=== PATIENT | male | born 1935 | race Caucasian/White ===

== ENCOUNTER 2017-11-30 15:15 | Observation (INO) ==
[2017-11-30] MEDS ORDERED: Esmolol 100 MG/10 ML VIAL IVP ONE (16:00)
[2017-11-30] MEDS ORDERED: Aspirin 81 MG TAB.CHEW PO STA (16:05)
--- NOTE | 2017-11-30 16:08 | Emergency Department Note ---
Disposition Clinical Impression: Atrial fibrillation with rapid ventricular response, Tremor Disposition: Admitted As Inpatient Referrals: Randy Wilks DO [Primary Care Provider] - Forms: ED Satisfaction Letter General Adult HPI - General Chief complaint: ED Arrhythmia/Palpitations Stated complaint: sent by jolynn doc, high HR Time Seen by Provider: 11/30/17 15:55 - History of Present Illness HPI Narrative: Patient presents from his doctor's office where he was noted to have a heart rate of around 160. He had an EKG in his doctor's office that showed this. He has had a rapid heartbeat in the past, but neither he nor his daughter think that he has a history of atrial fibrillation. He says that the linseed oil boiler mentioned that the last time his heart rate was elevated, but said that he did not think that is what it is. However, he was supposed to take Alquist, but since it was so expensive, he call the linseed oil boiler and suggested that he just use an aspirin instead, and tells me the linseed oil boiler said, that should do." He denies any chest pain, shortness of breath, fever, cough, runny nose, congestion. No abdominal pain, vomiting, diarrhea. He has been feeling weak and fatigued over the last month or so. Has not passed out. Is otherwise without complaint, other than urinary tract symptoms, for which she is being treated with Cipro. Pain Scale: 0 - Related Data Home Medications Medication Instructions Recorded Confirmed Aspirin [Ecotrin] 325 mg PO DAILY 05/07/16 11/30/17 Lisinopril/Hydrochlorothiazide 1 each PO BID 05/07/16 11/30/17 [Zestoretic 10-12.5 mg Tablet] diazePAM [Valium] 2.5 mg PO BID 11/30/17 11/30/17 Previous Rx's Medication Instructions Recorded Metoprolol XL (24 HR) Succ [Toprol 25 mg PO DAILY 30 Days tab.er.24h 05/08/16 Xl] Ciprofloxacin HCl [Cipro] 250 mg PO BID 7 Days #14 tab 11/26/17 Allergies Allergy/AdvReac Type Severity Reaction Status Date / Time No Known Allergies Allergy Verified 11/30/17 15:23 All systems ED: reviewed and negative except as stated. Past Medical History - Past Medical History Medical history: Reports: cancer, hypertension Surgical history: Reports: prostatectomy Psychiatric history: Reports: no psych history - Social History Smoking Status: Former smoker Smokeless Tobacco Status: No Alcohol use: Reports: none Drug use: Reports: none Physical Exam Vital signs noted please see nurse's notes. Gen.: Well-developed, well-nourished patient lying in bed who appears nontoxic. Head: Atraumatic, normocephalic. Eyes: Sclerae anicteric. ENT: Mucous membranes moist. Neck: No JVD or hepatojugular reflux. Heart: Tachycardic and irregularly irregular, no appreciable murmur. Lungs: Normal respiratory pattern without respiratory distress, lungs clear to auscultation bilaterally. Abdomen: Soft, nontender, nondistended, no guarding or peritoneal signs. Skin: Warm and dry with scaling, concerning for the possibility of eczema, although he does not carry this diagnosis. Neurologic: Awake, alert with normal speech and mental status. He has a significant tremor. Cranial nerves grossly intact. No focal deficits or lateralizing signs. Psychiatric: Normal mood and affect. Musculoskeletal: 1-2+ bilateral peripheral edema. No signs of trauma or DVT. - General General appearance: alert Course Vital Signs Temperature 97.5 F L 11/30/17 15:20 Pulse Rate 109 11/30/17 15:20 Respiratory Rate 18 11/30/17 15:20 Blood Pressure 105/65 11/30/17 15:20 O2 Sat by Pulse Oximetry 94 11/30/17 15:20 Temperature 97.5 F L 11/30/17 15:52 Pulse Rate 104 11/30/17 17:28 Respiratory Rate 12 11/30/17 17:28 Blood Pressure 98/74 11/30/17 17:28 O2 Sat by Pulse Oximetry 97 11/30/17 17:28 Oxygen Delivery Oxygen Delivery Room Air Medical Decision Making - [facility] Narrative Medical decision making narrative: Since the patient is on a beta ayleen at home, I opted for a beta ayleen for rate control in the ED. While we are waiting for the esmolol to come from pharmacy, we gave him some IV Lopressor. After a couple of doses of IV Lopressor and the esmolol bolus followed by a drip at 50 mics per minute, the tint layer was still reading high heart rate, but it was inaccurate due to his tremor. Pulse oximeter was measuring a rate in the 80s, and this correlated with the pulse rate when I checked it manually. - Lab Data Result diagrams: 11/30/17 15:35 11/30/17 15:35 Lab Results 11/30/17 11/30/17 Range/Units 15:35 15:35 WBC 8.9 (4.3-11.1) K/mcL RBC 4.80 (4.19-5.50) M/mcL Hgb 14.5 (12.9-16.9) g/dL Hct 43.6 (37.5-50.1) % MCV 90.8 (83.0-100.0) fL MCH 30.2 (28.0-33.3) pg MCHC 33.3 (31.6-35.5) g/dL RDW 13.6 (11.5-14.5) % Plt Count 341 (140-400) K/mcL MPV 9.8 (9.4-12.4) fL Immature Gran % 0.7 (0-4) % Seg Neutrophils % 67.9 % Lymphocytes % 22.3 % Monocytes % 6.9 % Eosinophils % 1.9 % Basophils % 0.3 % Neutrophils # 6.0 (1.6-8.9) K/mcL Lymphocytes # 2.0 (0.6-4.6) K/mcL Monocytes # 0.6 (0.0-1.3) K/mcL Eosinophils # 0.2 (0.0-0.6) K/mcL Basophils # 0.0 (0.0-0.2) K/mcL Sodium 133 L (136-145) mEq/L Potassium 3.9 (3.5-5.1) mEq/L Chloride 97 L (98-107) mEq/L Carbon Dioxide 26 (23-29) mEq/L BUN 24 H (8-23) mg/dL Creatinine 1.55 H (0.70-1.30) mg/dL Est GFR ( Amer) 53 L (> 60) Est GFR (Non-Af Amer) 43 L (> 60) BUN/Creatinine Ratio 15 (6-26) Glucose 140 H (70-105) mg/dL Calculated Osmolality 282 (280-300) Calcium 9.4 (8.6-10.3) mg/dL Magnesium 1.8 (1.6-2.6) mg/dL Troponin I < 0.03 (< 0.04) ng/mL TSH 1.569 (0.340-5.600) mcIU/mL - EKG Data EKG #1 EKG attestation: Yes I reviewed and interpreted this EKG. Rate: tachycardia (Atrial fibrillation, rate 139. Normal QT interval and QRS duration. No acute ischemic ST segment changes.)
[2017-11-30 16:10] LABS: Basophils % 0.3 %; Eosinophils # 0.2 K/mcL (0.0-0.6); Eosinophils % 1.9 %; Hematocrit 43.6 % (37.5-50.1); Hemoglobin 14.5 g/dL (12.9-16.9); Immature Granulocytes % 0.7 % (0-4); Lymphocytes % 22.3 %; Mean Corpuscular HGB Conc 33.3 g/dL (31.6-35.5); Mean Corpuscular Hemoglobin 30.2 pg (28.0-33.3); Mean Corpuscular Volume 90.8 fL (83.0-100.0); Mean Platelet Volume 9.8 fL (9.4-12.4); Monocytes # 0.6 K/mcL (0.0-1.3); Monocytes % 6.9 %; Platelet Count 341 K/mcL (140-400); Red Cell Distribution Width 13.6 % (11.5-14.5); Segmented Neutrophils % 67.9 %
[2017-11-30 16:21] LABS: BUN/Creatinine Ratio 15 (6-26); Blood Urea Nitrogen 24 mg/dL (8-23); Calcium 9.4 mg/dL (8.6-10.3); Carbon Dioxide 26 mEq/L (23-29); Chloride 97 mEq/L (98-107); Glucose 140 mg/dL (70-105); Magnesium 1.8 mg/dL (1.6-2.6); Osmolality,Calculated 282 (280-300); Potassium 3.9 mEq/L (3.5-5.1); Sodium 133 mEq/L (136-145); eGFR For African Americans 53 (> 60); eGFR For Non-African Americans 43 (> 60)
[2017-11-30] MEDS: *HR* Metoprolol 5 MG/5 ML VIAL IVP SCH ×3 (16:33→16:53)
[2017-11-30 16:47] LABS: Troponin I < 0.03 ng/mL (< 0.04)
[2017-11-30 17:00] LABS: Thyroid Stimulating Hormone 1.569 mcIU/mL (0.340-5.600)
[2017-11-30] MEDS: Esmolol 2.5 GM/250 ML MLS IVC SCH (17:22)
--- NOTE | 2017-11-30 21:32 | Internal Med History&Physical ---
<Yasmani Donnelly - Last Filed: 11/30/17 21:29> Date of Encounter: 11/30/17 Time of Encounter: 09:00 Internal Medicine - H&P: HPI Chief complaint: Elevated heart rate at outpatient office Admitted From: Emergency Dept Plans for Post Hospital Care: Home History of present illness: Mr. Sanchez is a 82 year old male past medical history hypertension, A. fib, diastolic CHF presents to ED for elevated heart rate of approximately 160 at outpatient's office. And physician recommended patient to come to the emergency room for further evaluation and management. The of [place]. Replies that he is compliant with all medications at home including metoprolol, bisoprololhydrochlorothiazide, aspirin, Valium. Patient also reports that he was originally recommended to take Eliquis for anticoagulation by his technical solutions consultant, but patient was unable to afford medication and was suggested to use aspirin instead. In addition, patient was diagnosed with UTI and started on Cipro 4 days ago. He reports that his dysuria has resolved. Does admit to difficulty voiding, last void at noon which he reports was clear and normal. He denies any chest pain, shortness of breath, palpitations, weakness, cough, abdominal pain, diarrhea, constipation, fever, chills, nausea, vomiting. Patient is overall asymptomatic. He reports that his bed is difficult to sleep on, but otherwise has no further acute complaints. Past Med Surg Social Fam HX - Past Medical History Medical history: cancer, hypertension Psychiatric history: no psych history - Past Surgical History Surgical History: prostatectomy - Social History Smoking Status: Former smoker Smokeless Tobacco Status: No Alcohol use: none Drug use: none - Family History Father Hx Family Neuromuscular Disorders: Yes (CVA) Internal Medicine - H&P: Meds Aspirin [Ecotrin] 325 mg PO DAILY 05/07/16 [History] Lisinopril/Hydrochlorothiazide [Zestoretic 10-12.5 mg Tablet] 1 each PO BID 09/17 [History] Metoprolol XL (24 HR) Succ [Toprol Xl] 25 mg PO DAILY 30 Days tab.er.24h [Rx] Ciprofloxacin HCl [Cipro] 250 mg PO BID 7 Days #14 tab 11/26/17 [Rx] diazePAM [Valium] 2.5 mg PO BID 11/30/17 [History] 3 Allergy/AdvReac Type Severity Reaction Status Date / Time No Known Allergies Allergy Verified 11/30/17 15:23 All Systems PM: A 10-system review of systems was performed and is negative for pertinent findings except as documented above in the HPI. - Constitutional Constitutional: no chills, no fever(s), no night sweats - EENT Eyes: no change in vision, no discharge, no pain, no photophobia Ears: no ear discharge, no ear pain, no tinnitus Nose, mouth and throat: no dysphagia, no nasal discharge, no neck pain, no sore throat - Cardiovascular Cardiovascular ROS IM: no chest pain, no diaphoresis, no dyspnea, no lightheadedness, no palpitations, no syncope - Respiratory Respiratory: no cough, no dyspnea, no wheezing, no excessive phlegm production - Gastrointestinal Gastrointestinal: no abdominal pain, no diarrhea, no hematemesis, no hematochezia, no melena, no nausea, no vomiting - Musculoskeletal Musculoskeletal ROS IM: no numbness, no tingling - Integumentary Integumentary IM: no rash, no unusual bruising - Neurological Neurological ROS: no confusion, no convulsions, no focal weakness, no numbness, no tingling, no tremor(s) - Hematologic/Lymphatic Hematologic/Lymphatic: no easy bruising - Constitutional Vitals: Temp Pulse Resp BP Pulse Ox 97.5 F L 65 14 98/81 95 11/30/17 15:52 11/30/17 20:56 11/30/17 20:56 11/30/17 20:56 11/30/17 20:56 General appearance: Present: A&O X 3, no acute distress, answers questions appropriately - Head Head exam: Present: atraumatic, normocephalic - Eye Eye exam: Present: EOMI, conjuntiva pink, sclera anicteric - Neck Neck exam general surgery: Present: supple, trachea midline. Absent: lymphadenopathy - Respiratory Respiratory exam: Present: CTAB. Absent: accessory muscle use, rales, rhonchi, wheezes - Cardiovascular Cardiovascular exam: Present: RRR, +S1, +S2. Absent: diastolic murmur, gallop, rubs, systolic murmur - GI/Abdominal GI/Abdominal exam: Present: normal bowel sounds, soft, no peritoneal signs. Absent: distended, tenderness Additional comments: Distended. No fluid wave. - Extremities Exam Extremities exam: Present: warm, radial pulses palpable and symmetrical. Absent : calf tenderness, cyanotic, pedal edema Additional comments: Sun damage noted on all extremities. Right-sided upper extremity essential tremor noted - Neurological Exam Neurological exam: Present: CN II-XII intact, oriented X3, no focal deficits. Absent: pronater drift, facial droop, speech deficit - Skin Skin exam: Present: dry, intact Internal Med - H&P Results - Labs CBC & Chem 7: 11/30/17 15:35 11/30/17 15:35 - Assessment and plan (1) Atrial fibrillation with RVR Current Visit: No Status: Resolved Assessment and plan: The patient received dose of esmolol 60 MG, metoprolol 5 MG 3 doses, at ED. Heart rate is currently well controlled. However, his blood pressure is downtrending. Admit to ICU for Esmolol drip management. OK to give home metoprolol this PM, Hold if SBP < 90. Repeat EKG at midnight. Cardiac diet. Give home dose metoprolol tonight. Repeat Echo. Consider increasing metoprolol to 50mg PO daily after discharge. Educated patient on importance of being on an anticoagulant. Patient was originally advised to take Eliquis but was unable to afford it. Consult social worker delinquency prevention for possible alternatives. (2) Diastolic CHF Current Visit: No Status: Chronic Assessment and plan: Patient appears fluid overloaded. Continue home medications. Last Echo on 05/2016 = LVEF = 55-60%, moderate LV dysfunction, dilated R ventricle, elevated ESRP. Repeat Echo. Consult cardiology pending echo results. Qualifiers: Qualified Code(s): I50.32 - Chronic diastolic (congestive) heart failure (3) HTN (hypertension) Current Visit: No Status: Resolved Assessment and plan: Continue with Home lisinopril/hydrochlorothiazide. Hold if SBP < 90. Qualifiers: Hypertension type: essential hypertension Qualified Code(s): I10 - Essential (primary) hypertension (4) DVT prophylaxis Current Visit: No Status: Acute Assessment and plan: Lovenox. Patient was educated on importance of anticoagulation. I informed him on the possibility of getting social worker delinquency prevention involved in finding him a more affordable anticoagulant. (5) Urinary tract infection Current Visit: No Status: Acute Assessment and plan: #4/7 of ciprofloxacin. His symptoms of dysuria has improved. Continue home medications ciprofloxacin until completion of treatment. Qualifiers: Qualified Code(s): N39.0 - Urinary tract infection, site not specified (6) Tremor Current Visit: Yes Status: Acute Assessment and plan: Continue home medication metoprolol - Time Spent With Patient Total time spent is greater than 50% in coordination of care (as documented) at patient's floor/unit and/or counseling patient: Greater than 35 minutes <Lavon Arreaga - Last Filed: 11/30/17 22:46> Date of Encounter: 11/30/17 Time of Encounter: 21:00 Internal Medicine - H&P: HPI History of present illness: Mr. Sanchez is a 82 year old male All Systems PM: A 10-system review of systems was performed and is negative for pertinent findings except as documented above in the HPI. - Constitutional Vitals: Temp Pulse Resp BP Pulse Ox 98.7 F 86 14 202/57 95 11/30/17 21:45 11/30/17 22:00 11/30/17 21:40 11/30/17 22:00 11/30/17 20:56 Internal Med - H&P Results - Labs CBC & Chem 7: 11/30/17 15:35 11/30/17 15:35 - Attending Attestation I examined this patient and my medical decision-making was reviewed with the Resident Physician, Yasmani Donnelly. I agree with the documented findings, disposition and treatment plan as described with any changes as documented below. 82-year-old male patient with history of hypertension, hyperlipidemia, atrial fibrillation presented to the ER from his doctor's office with A. fib and RVR. Patient is mostly an asymptomatic. Denies any shortness of breath, palpitations or dizziness. No chest pain. He does have right upper extremity tremor which is chronic for him. EKG shows A. fib with RVR. On examination, patient is awake and alert. S1 and S2 are normal. Irregularly irregular rhythm. Does have pedal edema bilaterally with some stasis dermatitis. Atrial fibrillation with rapid ventricular response: Patient takes metoprolol at home. Has reports that his been compliant with that. He has been started on a small-volume the ER. Heart rate is improving. We will wean to titrate this medication down as patient's blood pressure is on the low side of normal. Will give an extra dose of Toprol tonight and then resume at 25 mg tomorrow. Consider increasing Toprol dosage to 25 mg twice daily or 50 mg daily. Discussed anticoagulation. Previously was on Eliquis but stopped due to tabares. Is willing to reconsider anticoagulation. Currently takes aspirin 325. We will change to 81 mg and start patient on Lovenox for now. Discuss long-term anticoagulation tomorrow. If A. fib is not controlled, consult cardiology tomorrow. Essential hypertension: Continue home medications. Monitor blood pressure closely. Currently on lower side of normal. Diastolic congestive heart failure: Not in acute exacerbation. Will order 2-D echocardiogram to evaluate patient. Recent acute UTI: Patient is on ciprofloxacin. Will complete treatment course. Chronic kidney disease stage III: Patient does appear to have chronic kidney disease and his creatinine is slightly above his baseline. We will monitor renal function and avoid nephrotoxic agents. We will stop hydrochlorothiazide - Assessment and plan (1) Atrial fibrillation with RVR Current Visit: Yes Status: Resolved (2) HTN (hypertension) Current Visit: Yes Status: Resolved Qualifiers: Hypertension type: essential hypertension Qualified Code(s): I10 - Essential (primary) hypertension (3) Diastolic CHF Current Visit: Yes Status: Chronic Qualifiers: Qualified Code(s): I50.32 - Chronic diastolic (congestive) heart failure (4) Urinary tract infection Current Visit: Yes Status: Acute Qualifiers: Qualified Code(s): N39.0 - Urinary tract infection, site not specified (5) Tremor Current Visit: Yes Status: Acute (6) DVT prophylaxis Current Visit: No Status: Acute - Time Spent With Patient Total time spent is greater than 50% in coordination of care (as documented) at patient's floor/unit and/or counseling patient:
[2017-11-30] MEDS ORDERED: Acetaminophen 325 MG TABLET PO PRN (21:47)
[2017-11-30] MEDS ORDERED: Naloxone 0.4 MG/ML INJ IVP PRN (21:47)
[2017-11-30] MEDS ORDERED: Metoprolol XL (24 HR) Succ 25 MG TAB.ER.24H PO ONE (23:02)
[2017-12-01] MEDS: Esmolol 2.5 GM/250 ML MLS IVC SCH (00:25)
[2017-12-01 04:33] LABS: Basophils % 0.2 %; Eosinophils # 0.3 K/mcL (0.0-0.6); Eosinophils % 2.8 %; Hematocrit 38.3 % (37.5-50.1); Immature Granulocytes % 0.7 % (0-4); Lymphocytes # 2.2 K/mcL (0.6-4.6); Lymphocytes % 24.3 %; Mean Corpuscular HGB Conc 32.9 g/dL (31.6-35.5); Mean Corpuscular Hemoglobin 29.8 pg (28.0-33.3); Mean Corpuscular Volume 90.5 fL (83.0-100.0); Mean Platelet Volume 9.5 fL (9.4-12.4); Monocytes # 0.8 K/mcL (0.0-1.3); Monocytes % 9.2 %; Neutrophils # 5.7 K/mcL (1.6-8.9); Platelet Count 285 K/mcL (140-400); Red Blood Count 4.23 M/mcL (4.19-5.50); Red Cell Distribution Width 13.9 % (11.5-14.5); Segmented Neutrophils % 62.8 %
[2017-12-01 04:46] LABS: Hemoglobin 12.6 g/dL (12.9-16.9)
[2017-12-01 04:53] LABS: Calcium 8.8 mg/dL (8.6-10.3); Potassium 3.5 mEq/L (3.5-5.1)
[2017-12-01] MEDS: *HR* Enoxaparin 120 MG/0.8 ML SYRINGE SQ SCH ×2 (05:26→18:17)
[2017-12-01] MEDS ORDERED: *HR* Enoxaparin 40 MG/0.4 ML SYRINGE SQ SCH (06:00)
[2017-12-01] MEDS ORDERED: 0.9 % Sodium Chloride 500 ML IVC ONE (06:32)
[2017-12-01] MEDS: Metoprolol XL (24 HR) Succ 25 MG TAB.ER.24H PO SCH (08:51)
[2017-12-01] MEDS: diazePAM 5 MG TABLET PO SCH ×2 (08:51→20:06)
--- NOTE | 2017-12-01 10:55 | Cardiology Consult Note ---
Date of Encounter: 12/01/17 Time of Encounter: 10:51 Assessment and Plan (1) Atrial fibrillation with rapid ventricular response Current Visit: Yes Status: Acute Currently rate control refuses AC and accepts higher risk of CVA. Declines ischemic work up and invasive cardiac procedures at this time. He may consider CVE in the future if medical management fails. Last EF 55% without any major valvular abnormalities. Increase BB to 25 mg BID F/U with [place] cardiology as an OP Discussion w patient/family: The assessment and plan as outlined above was discussed with the patient and/or family members who expressed understanding and agreement. All questions were answered. Thank you for involving us in the care of your patient. Please call with any questions. History of Present Illness Consult date: 12/01/17 Consult reason: Afib Chief complaint: Palpitations and fatigue History of present illness: Mr. Sanchez is a 82 year old male with Hx of PAF now rate controlled on ASA for stroke risk reduction. Patient declines AC in past and continues to decline at this time. He understands he is at a high risk for CVA. [place] HR is low 50's , with a drop i the past prompting a dose decrease to 12.5 mg BID. With this fatigue and SOB we discussed an ischemic work up but he declined and refuses any invasive procedures. This also include CVE at this time. He checks his HR at home frequently and so we will increase his BB to 25mg BID and if his HR drops to low 40's he is to cut back to half dose. Past Med Surg Social Fam HX - Past Medical History Medical history: cancer, hypertension Additional medical history: tremmors Psychiatric history: no psych history - Past Surgical History Surgical History: prostatectomy Additional surgical history: double hernia 1991. knee surgery 2005. back surgery in 1994 - Social History Smoking Status: Former smoker Smokeless Tobacco Status: No Alcohol use: none Drug use: none - Family History Father Hx Family Neuromuscular Disorders: Yes (CVA) Medications and Allergies Aspirin [Ecotrin] 325 mg PO DAILY 05/07/16 [History] Lisinopril/Hydrochlorothiazide [Zestoretic 10-12.5 mg Tablet] 1 each PO BID 09/17 [History] Metoprolol XL (24 HR) Succ [Toprol Xl] 25 mg PO DAILY 30 Days tab.er.24h [Rx] Ciprofloxacin HCl [Cipro] 250 mg PO BID 7 Days #14 tab 11/26/17 [Rx] diazePAM [Valium] 2.5 mg PO BID 11/30/17 [History] 3 Allergy/AdvReac Type Severity Reaction Status Date / Time No Known Allergies Allergy Verified 11/30/17 15:23 All Systems Review: The remainder of the systems were reviewed and are negative Physical Examination Vital Signs, Last 4 Hours Temp 12/01/17 08:03 97.6 F General: Conversant, No Apparent Distress HEENT: Atraumatic, Normocephaly, Mucus Membranes Moist Neck: No JVD, Normal carotid pulses Cardiac: Reg Rate and Rhythm, Normal S1 and S2, No Murmur Lungs: Normal Breath Sounds, No Wheeze, Rales, Rhonchi Neuro: Alert and responsive, No focal deficits noted Abdomen: Soft, Non-Tender Skin: No rashes noted on visualized skin Musculoskeletal: No Chest Wall Tenderness Extremities: No Clubbing, No Cyanosis, No Edema, Normal Pulses Results 12/01/17 04:14 12/01/17 04:14 Lab Results 12/01/17 12/01/17 04:14 04:14 WBC 9.0 Hgb 12.6 L D Hct 38.3 Plt Count 285 Sodium 129 L Potassium 3.5 Chloride 96 L Carbon Dioxide 24 BUN 30 H Creatinine 1.72 H Glucose 146 H Calcium 8.8 Consult Discharge Plan - Plan Referrals: Randy Wilks DO [Primary Care Provider] -
--- NOTE | 2017-12-01 14:46 | Electrocardiograph Report ---
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
--- NOTE | 2017-12-01 14:48 | Electrocardiograph Report ---
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
--- NOTE | 2017-12-01 14:49 | Electrocardiograph Report ---
[address] [place], [place] [address] Test Date: 2017-11-30 Pat Name: Alphonso Sanchez Department: 103 Room: 01 Gender: M Site Controller: TOO : 1935 Requested By: Dinora Bacon Order Number: [id number] Reading MD: May Simmons Measurements Intervals [place] Rate: 90 P: 74 TX: 128 QRS: -9 QRSD: 84 T: 0 QT: 344 QTc: 391 Interpretive Statements PROBABLY ATRIAL FIBRILLATION - BASELINE ARTIFACT Electronically Signed On 12-01-2017 14:48:14 EDT by May Simmons
--- NOTE | 2017-12-01 14:55 | Electrocardiograph Report ---
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
--- NOTE | 2017-12-01 16:42 | Internal Med Progress Note ---
Date of Encounter: 12/01/17 Time of Encounter: 08:45 - Assessment and plan (1) Atrial fibrillation with RVR Current Visit: Yes Status: Acute Assessment and plan: Initial EKG revealed narrow complex irregular rhythm with tachycardia. Has been started on IV Esmolol drip in the emergency room. Heart rate is improved currently, resume metoprolol. Has been started on therapeutic dose of subcutaneous Lovenox. Long-term anticoagulation was discussed with patient, he refuses to be on Coumadin and reports that he cannot afford NOACs; follow-up echocardiogram, cardiology consulted. Continue telemetry monitoring. Physical therapy evaluation. Patient is stable for transfer to medical floor with telemetry. (2) HTN (hypertension) Current Visit: Yes Status: Chronic Assessment and plan: Blood pressure acceptable. Continue home medications, hold lisinopril and hydrochlorothiazide due to worsening serum creatinine. Qualifiers: Hypertension type: essential hypertension Qualified Code(s): I10 - Essential (primary) hypertension (3) DVT prophylaxis Current Visit: No Status: Acute (4) Diastolic CHF Current Visit: Yes Status: Chronic Assessment and plan: Hold diuretics due to worsening renal function. Follow-up echocardiogram. Continue beta ayleen and telemetry monitoring. Qualifiers: Qualified Code(s): I50.32 - Chronic diastolic (congestive) heart failure (5) Urinary tract infection Current Visit: Yes Status: Acute Assessment and plan: Was diagnosed as an outpatient and started on ciprofloxacin. Continue to complete the course as prescribed. Qualifiers: Urinary tract infection type: site unspecified Hematuria presence: without hematuria Qualified Code(s): N39.0 - Urinary tract infection, site not specified (6) Tremor Current Visit: Yes Status: Chronic (7) CKD (chronic kidney disease) Current Visit: Yes Status: Chronic Assessment and plan: Serum creatinine noted to be worsening, 1.72 today. Baseline serum creatinine noted to be around 1.3. Avoid nephrotoxins and continue to monitor closely. Qualifiers: Chronic kidney disease stage: stage 3 (moderate) Qualified Code(s): N18.3 - Chronic kidney disease, stage 3 (moderate) - Time Spent With Patient Total time spent is greater than 50% in coordination of care (as documented) at patient's floor/unit and/or counseling patient: - Subjective Interval history: Reports feeling tired. No chest pain, palpitations, shortness of breath, cough. Off IV Esmolol, HR better controlled; - Constitutional Vitals: Temp Pulse Resp BP Pulse Ox 98.4 F 89 16 118/99 97 12/01/17 15:34 12/01/17 15:00 12/01/17 15:00 12/01/17 15:00 12/01/17 15:00 General appearance: Present: A&O X 3, no acute distress, answers questions appropriately - Respiratory Respiratory exam: Present: CTAB. Absent: accessory muscle use, rales, rhonchi, wheezes - Cardiovascular Cardiovascular exam: Present: irregular rhythm, +S1, +S2. Absent: diastolic murmur, gallop, rubs, systolic murmur - GI/Abdominal GI/Abdominal exam: Present: normal bowel sounds, soft, no peritoneal signs. Absent: distended, tenderness - Extremities Exam Extremities exam: Present: full ROM, warm, radial pulses palpable and symmetrical. Absent: calf tenderness, cyanotic, pedal edema - Neurological Exam Neurological exam: Present: CN II-XII intact, oriented X3, no focal deficits. Absent: pronater drift, facial droop, speech deficit Internal Medicine: Result - Labs CBC & Chem 7: 12/01/17 04:14 12/01/17 04:14 Labs: Short CBC 12/01/17 Range/Units 04:14 WBC 9.0 (4.3-11.1) K/mcL Hgb 12.6 L D (12.9-16.9) g/dL Hct 38.3 (37.5-50.1) % Plt Count 285 (140-400) K/mcL Neutrophils # 5.7 (1.6-8.9) K/mcL BMP 12/01/17 04:14 Sodium 129 L Potassium 3.5 Chloride 96 L Carbon Dioxide 24 BUN 30 H Creatinine 1.72 H Glucose 146 H Calcium 8.8 - Impressions Impressions Echocardiogram 12/01/17 21:54 Impressions: LVEF 60%. Mild left ventricular diastolic dysfunction. Normal right ventricular structure and function. Mild tricuspid regurgitation. Borderline pulmonary hypertension. Left Ventricular Wall Motion: Rest Echo Findings All wall segments showed normal motion. Findings: Study Quality * Technically adequate exam. ECG Findings * Normal sinus rhythm. Left Ventricle * LVEF 60%. * Normal LV chamber size, wall thickness and function. * Mild left ventricular diastolic dysfunction. Right Ventricle * Normal right ventricular structure and function. Left Atrium * Normal left atrial size. Right Atrium * Normal right atrial size. Mitral Valve * Normal mitral valve structure. * No mitral stenosis. * No mitral regurgitation. Aortic Valve * No aortic regurgitation. * Aortic valve not well visualized. * No aortic stenosis. Tricuspid Valve * Tricuspid valve not well visualized. * Mild tricuspid regurgitation. * Estimated RA pressure is 3 mmHg. * Estimated RVSP is 34 mmHg. * Borderline pulmonary hypertension. Pulmonic Valve * Pulmonic valve is not well visualized. * No pulmonic stenosis. * Trace pulmonic regurgitation. Pulmonary Artery * Pulmonary artery not well visualized. Aorta * Normally sized aortic root. Pericardium * There is no pericardial effusion present. Interatrial Septum * No evidence of PFO by color Doppler. IVC * The IVC is not dilated. - VTE Documentation of Mechanical Device: Intermittent pneumatic compression device Consult Discharge Plan - Plan Referrals: Randy Wilks DO [Primary Care Provider] -
[2017-12-02 04:23] LABS: BUN/Creatinine Ratio 22 (6-26); Blood Urea Nitrogen 28 mg/dL (8-23); Calcium 8.8 mg/dL (8.6-10.3); Carbon Dioxide 24 mEq/L (23-29); Chloride 96 mEq/L (98-107); Glucose 122 mg/dL (70-105); Magnesium 1.9 mg/dL (1.6-2.6); Osmolality,Calculated 277 (280-300); Potassium 3.6 mEq/L (3.5-5.1); Sodium 130 mEq/L (136-145); eGFR For African Americans > 60 (> 60); eGFR For Non-African Americans 54 (> 60)
[2017-12-02] MEDS: *HR* Enoxaparin 120 MG/0.8 ML SYRINGE SQ SCH (06:10)
[2017-12-02] MEDS: Metoprolol XL (24 HR) Succ 25 MG TAB.ER.24H PO SCH (07:56)
[2017-12-02] MEDS: diazePAM 5 MG TABLET PO SCH (07:56)
[2017-12-02 11:37] VITALS: BP 131/72
--- NOTE | 2017-12-02 13:31 | Discharge Summary ---
- NOTES TO OUTPATIENT PROVIDER Notes to Outpatient Provider: Greerfib with RVR, declined anticoagulation and left heart cath; increased Metoprolol; Orders not resulted at time of discharge: Pending orders 11/30/17 23:55 EKG [ECG 12 lead ECG] [ECG] Routine Date of Encounter: 12/02/17 Time of Encounter: 08:30 - Discharge Diagnosis (1) Atrial fibrillation with RVR Priority: Primary Status: Acute (2) HTN (hypertension) Priority: Secondary Status: Chronic Qualifiers: Hypertension type: essential hypertension Qualified Code(s): I10 - Essential (primary) hypertension (3) Urinary tract infection Priority: Secondary Status: Acute Qualifiers: Urinary tract infection type: site unspecified Hematuria presence: without hematuria Qualified Code(s): N39.0 - Urinary tract infection, site not specified (4) Tremor Priority: Secondary Status: Chronic (5) CKD (chronic kidney disease) Priority: Secondary Status: Chronic Qualifiers: Chronic kidney disease stage: stage 3 (moderate) Qualified Code(s): N18.3 - Chronic kidney disease, stage 3 (moderate) Hospital course: Mr. Sanchez is a 82 year old male with the above medical problems, who was sent from his primary physician's office with tachycardia. Patient was noted to be in atrial fibrillation with rapid ventricular response and was started briefly on IV esmolol drip in the emergency room. His heart rate was subsequently better controlled, home dose of metoprolol is being increased to twice daily. Echocardiogram was completed which showed preserved ejection fraction, mild diastolic dysfunction. Patient is not on outpatient anticoagulation and refuses to be on Coumadin due to frequent INR checks and fall risk due to tremors, he further cannot afford any NOACs and thus decided to continue high dose ASA for prophylaxis. Cardiology was consulted, patient continued to decline anticoagulation and cardiac ischemic workup. Physical therapy evaluation recommended no discharge needs. He is currently medically stable for discharge with outpatient follow-up. Discharge discussed with: patient, nurse - Time Spent with Patient Total time spent providing and/or coordinating discharge services: Greater than 30 minutes (40 min) - Discharge Medications Prescriptions: Metoprolol XL (24 HR) Succ [Toprol Xl] 25 mg PO BID #60 tab.er.24h Home Medications: Aspirin [Ecotrin] 325 mg PO DAILY 05/07/16 [History] Lisinopril/Hydrochlorothiazide [Zestoretic 10-12.5 mg Tablet] 1 each PO BID 09/17 [History] Ciprofloxacin HCl [Cipro] 250 mg PO BID 7 Days #14 tab 11/26/17 [Rx] diazePAM [Valium] 2.5 mg PO BID 11/30/17 [History] Metoprolol XL (24 HR) Succ [Toprol Xl] 25 mg PO BID #60 tab.er.24h 12/02/17 [Rx] Allergies/Adverse Reactions: 3 Allergy/AdvReac Type Severity Reaction Status Date / Time No Known Allergies Allergy Verified 11/30/17 15:23 Date of admission: 11/30/17 21:25 Primary care physician: Randy Wilks, Consults: 11/30/17 21:55 Consult to [facility] [CONS] Routine Reason for SW Consult: Unable to afford Eliquis. Requires chronic anticoagulant. 12/01/17 10:06 Consult to Cardiology [CONS] Routine Comment: Consulting Provider: Cardiology Arlette Reason for Consult: A.fib with RVR, not on anticoagulation as outpatient Call Completed: Yes 12/01/17 16:45 Consult to Physical Therapy [CONS] Routine Comment: Evaluate, develop and implement POC Reason for Consult: Generalized weakness Does patient have active BEDREST order?: No Is patient medically & hemodynamically stable?: Yes Patient assessed for mobility or mobilized this visit?: No Discharging clinician: Padma Bacon Anticipated date of discharge: 12/02/17 - Constitutional Vitals: Temp Pulse Resp BP Pulse Ox 98.2 F 67 18 131/72 96 12/02/17 11:10 12/02/17 11:00 12/02/17 11:00 12/02/17 11:00 12/02/17 11:00 General appearance: Present: A&O X 3, no acute distress, answers questions appropriately - Cardiovascular Cardiovascular exam: Present: RRR, +S1, +S2. Absent: diastolic murmur, gallop, rubs, systolic murmur - Patient Status Disposition: Home, Self-Care Condition: Good Functional capacity at discharge: independent ambulation Overall status at discharge: patient is progressing back to baseline - Discharge Instructions Instructions: Atrial Fibrillation (DC), Chronic Hypertension (DC) Follow Up With: Randy Wilks DO [Primary Care Provider] - Additional Instructions: F/up with PCP in 1-2 weeks - Diet and Activity Activity: resume usual activities as tolerated Diet: low fat, low cholesterol, low salt diet - VTE Documentation of Mechanical Device: Intermittent pneumatic compression device
== END 2017-12-02 14:52 | disposition home or self-care (01) ==
LOC: ICNU 15:15 → EMEROO 15:15 → SUATTDRO 21:25 → ICNU 21:51
PROVIDERS: ADMIT Internal Medicine Hematology & Oncology; ATTEND Internal Medicine